=== PATIENT | male | born 1995 | race Hispanic/Latino ===

== ENCOUNTER 2021-04-11 01:41 | Emergency (ER) | payer SELFPAY ==
[2021-04-11] MEDS ORDERED: Ondansetron ODT 4 MG TAB ONE (02:43)
[2021-04-11] MEDS ORDERED: Acetaminophen 500 MG TAB ONE (02:43)
[2021-04-11 17:14] LABS: SARS-CoV-2 PCR by NAA Not Detected (NotDetected)
== END 2021-04-11 03:40 | disposition home or self-care (01) ==
LOC: CSHERS 01:41
DX: B34.9 Viral infection, unspecified (principal); Z20.822 Contact with and (suspected) exposure to COVID-19
CPT/HCPCS: 87804; 99284; Q0162; U0003; U0005